=== PATIENT | male | born 1980 | race Caucasian/White ===

== ENCOUNTER 2017-07-21 20:52 | Emergency (ER) | payer SELFPAY ==
[~2017-07-21] VITALS: Ht 182.9 cm; Wt 72.6 kg
[~2017-07-21 20:52] MED LIST: BUPR1 PO; Bactrim Ds Tab1 EACH PO; Keflex500 MG PO; NAPR500 PO; Percocet 5-3251 EACH PO; SUBOXONE 8 MG-1 EACH SL
[2017-07-21] MEDS ORDERED: IBUP600 PO (23:10)
== END 2017-07-21 23:29 | disposition home or self-care (01) ==
LOC: ER 20:52
DX: M25.531 Pain in right wrist (principal); Z87.891 Personal history of nicotine dependence
CPT/HCPCS: 29125; 73110; 96372; 99283; J1885

== ENCOUNTER 2017-07-29 04:13 | Inpatient (IN) | payer SELFPAY ==
[~2017-07-29] VITALS: Ht 182.9 cm; Wt 72.2 kg
[~2017-07-29 04:13] MED LIST changes: +IBUP600 PO
[2017-07-29 05:22] LABS: BASOPHILS ABSOLUTE AUTO 0.02 K/mm3 (0.00-0.23); BASOPHILS PERCENT AUTO 0 % (0-2); EOSINOPHILS ABSOLUTE AUTO 0.05 K/mm3 (0.00-0.68); EOSINOPHILS PERCENT AUTO 1 % (0-6); Hematocrit 41.6 % (37.0-53.0); Hemoglobin 13.6 g/dL (13.5-17.5); IMMATURE GRAN ABSOLUTE AUTO 0.04 K/mm3 (0.00-0.10); IMMATURE GRAN PERCENT AUTO 1 % (0-1); LYMPHOCYTES ABSOLUTE AUTO 1.77 K/mm3 (0.84-5.20); LYMPHOCYTES PERCENT AUTO 20 % (21-46); MONOCYTES ABSOLUTE AUTO 1.12 K/mm3 (0.16-1.47); MONOCYTES PERCENT AUTO 13 % (4-13); Mean Corpuscular HGB 31.3 pg (26.0-34.0); Mean Corpuscular HGB Conc 32.7 g/dL (31.5-36.5); Mean Corpuscular Volume 96 fL (80-100); Mean Platelet Volume 9.4 fL (9.1-12.4); NEUTROPHILS ABSOLUTE AUTO 5.67 K/mm3 (1.96-9.15); NEUTROPHILS PERCENT AUTO 65 % (41-73); Platelet Count 294 K/mm3 (150-400); RDW Coefficient Variation 11.9 % (11.7-14.2); RDW Standard Deviation 41.5 fL (35.1-46.3); Red Blood Cell Count 4.35 M/mm3 (4.30-5.90); White Blood Cell Count 8.67 K/mm3 (4.00-11.30)
[2017-07-29 05:38] LABS: Alanine Aminotransfer (ALT/SGP 27 U/L (12-78); Albumin/Globulin Ratio 0.7 (0.8-1.8); Alk Phos 73 U/L (50-136); Anion Gap 7 mmol/L (6-16); Aspartate Aminotrans (AST/SGOT 25 U/L (12-37); Bilirubin, Total 0.4 mg/dL (0.1-1.0); Blood Urea Nitrogen 13 mg/dL (8-24); Bun/Creatinine Ratio 18.6 (12.0-20.0); CO2, Blood 28 mmol/L (21-32); Calcium, Blood 8.6 mg/dL (8.5-10.1); Chloride, Blood 106 mmol/L (98-108); Globulin, Blood 4.4 g/dL (2.2-4.0); Glomerular Filtration Rate >60 (60-); Glucose, Blood 92 mg/dL (70-99); Potassium, Blood 3.2 mmol/L (3.5-5.5); Sodium, Blood 141 mmol/L (136-145); Total Protein, Blood 7.4 g/dL (6.4-8.2)
[2017-07-29] MEDS ORDERED: IBUP800 PO (15:53)
[2017-07-30 05:19] LABS: BASOPHILS ABSOLUTE AUTO 0.05 K/mm3 (0.00-0.23); BASOPHILS PERCENT AUTO 1 % (0-2); EOSINOPHILS ABSOLUTE AUTO 0.09 K/mm3 (0.00-0.68); EOSINOPHILS PERCENT AUTO 1 % (0-6); Hemoglobin 12.2 g/dL (13.5-17.5); IMMATURE GRAN ABSOLUTE AUTO 0.08 K/mm3 (0.00-0.10); IMMATURE GRAN PERCENT AUTO 1 % (0-1); LYMPHOCYTES ABSOLUTE AUTO 1.62 K/mm3 (0.84-5.20); LYMPHOCYTES PERCENT AUTO 15 % (21-46); MONOCYTES ABSOLUTE AUTO 1.32 K/mm3 (0.16-1.47); MONOCYTES PERCENT AUTO 13 % (4-13); Mean Corpuscular HGB 31.3 pg (26.0-34.0); Mean Corpuscular HGB Conc 32.1 g/dL (31.5-36.5); Mean Corpuscular Volume 97 fL (80-100); Mean Platelet Volume 9.3 fL (9.1-12.4); NEUTROPHILS ABSOLUTE AUTO 7.39 K/mm3 (1.96-9.15); NEUTROPHILS PERCENT AUTO 70 % (41-73); Platelet Count 311 K/mm3 (150-400); RDW Coefficient Variation 11.9 % (11.7-14.2); RDW Standard Deviation 42.6 fL (35.1-46.3); White Blood Cell Count 10.55 K/mm3 (4.00-11.30)
[2017-07-30 05:44] LABS: Anion Gap 7 mmol/L (6-16); Blood Urea Nitrogen 10 mg/dL (8-24); Bun/Creatinine Ratio 14.2 (12.0-20.0); CO2, Blood 29 mmol/L (21-32); Calcium, Blood 8.1 mg/dL (8.5-10.1); Chloride, Blood 104 mmol/L (98-108); Creatinine, Blood 0.71 mg/dL (0.60-1.20); Glomerular Filtration Rate >60 (60-); Glucose, Blood 126 mg/dL (70-99); Potassium, Blood 4.2 mmol/L (3.5-5.5); Sodium, Blood 140 mmol/L (136-145); Vancomycin, Trough 11.3 ug/mL (5.0-10.0)
== END 2017-07-31 19:30 | disposition left against medical advice (07) | DRG 603 ==
LOC: ER 04:13 → MEDS 04:14
PROVIDERS: Emergency Medicine; Internal Medicine
DX: L03.113 Cellulitis of right upper limb (principal); E87.6 Hypokalemia; G56.01 Carpal tunnel syndrome, right upper limb; Z86.14 Personal history of Methicillin resistant Staphylococcus aureus infection
CPT/HCPCS: 20605; 36415; 73080; 80048; 80053; 80202; 83605; 85025; 85651; 86140; 87040; 93971; 96365; 96375; 99285; C1751; J1885; J2543; J3370; J7030; J7050; Q2038

== ENCOUNTER 2021-02-18 23:55 | Inpatient (IN) | payer OTHER ==
[~2021-02-18] VITALS: Ht 185.4 cm; Wt 89.5 kg
[~2021-02-18 23:55] MED LIST changes: +IBUP800 PO
[2021-02-19 00:23] LABS: BASOPHILS ABSOLUTE AUTO 0.07 K/mm3 (0.00-0.23); BASOPHILS PERCENT AUTO 1 % (0-2); EOSINOPHILS ABSOLUTE AUTO 0.07 K/mm3 (0.00-0.68); EOSINOPHILS PERCENT AUTO 1 % (0-6); Hematocrit 46.5 % (37.0-53.0); Hemoglobin 16.1 g/dL (13.5-17.5); IMMATURE GRAN ABSOLUTE AUTO 0.08 K/mm3 (0.00-0.10); IMMATURE GRAN PERCENT AUTO 1 % (0-1); LYMPHOCYTES ABSOLUTE AUTO 2.48 K/mm3 (0.84-5.20); LYMPHOCYTES PERCENT AUTO 20 % (21-46); MONOCYTES ABSOLUTE AUTO 0.93 K/mm3 (0.16-1.47); MONOCYTES PERCENT AUTO 7 % (4-13); Mean Corpuscular HGB 33.1 pg (26.0-34.0); Mean Corpuscular HGB Conc 34.6 g/dL (31.5-36.5); Mean Corpuscular Volume 96 fL (80-100); Mean Platelet Volume 9.7 fL (9.1-12.4); NEUTROPHILS ABSOLUTE AUTO 9.07 K/mm3 (1.96-9.15); NEUTROPHILS PERCENT AUTO 71 % (41-73); Platelet Count 290 K/mm3 (150-400); RDW Coefficient Variation 12.5 % (11.7-14.2); RDW Standard Deviation 44.3 fL (35.1-46.3); Red Blood Cell Count 4.87 M/mm3 (4.30-5.90)
[2021-02-19 00:31] LABS: Source, Urine Clean Catch
[2021-02-19 00:34] LABS: Bilirubin, Urine Neg (Neg); Blood, Urine 1+ (Neg); Glucose Qualitative, Urine Neg (Neg); Ketones, Urine Neg (Neg); Leukocyte Esterase, Urine Neg (Neg); Nitrite, Urine Neg (Neg); Protein, Urine 2+ (Neg); Specific Gravity, Urine 1.015 (1.003-1.022); Urobilinogen, Urine NORM (Normal)
[2021-02-19 00:41] LABS: Alanine Aminotransfer (ALT/SGP 75 U/L (12-78); Albumin, Blood 3.8 g/dL (3.4-5.0); Alk Phos 74 U/L (50-136); Anion Gap 10 mmol/L (6-16); Aspartate Aminotrans (AST/SGOT 91 U/L (12-37); Bilirubin, Total 0.4 mg/dL (0.1-1.0); Blood Urea Nitrogen 11 mg/dL (8-24); Bun/Creatinine Ratio 10.7 (12.0-20.0); CO2, Blood 21 mmol/L (21-32); Calcium, Blood 8.6 mg/dL (8.5-10.1); Chloride, Blood 110 mmol/L (98-108); Creatinine, Blood 1.03 mg/dL (0.60-1.20); Globulin, Blood 3.8 g/dL (2.2-4.0); Glomerular Filtration Rate >60 (60-); Glucose, Blood 113 mg/dL (70-99); Potassium, Blood 3.5 mmol/L (3.5-5.5); Sodium, Blood 141 mmol/L (136-145); Total Protein, Blood 7.6 g/dL (6.4-8.2)
[2021-02-19 00:43] LABS: Appearance, Urine Clear (Clear); Color, Urine Yellow (P-Yellow)
[2021-02-19 00:46] LABS: Bacteria Not Seen /hpf; Red Blood Cells, Urine 0-2 /hpf (0-2); Squamous Epithelial Cells Rare /hpf (Few); White Blood Cells, Urine Rare /hpf (0-5)
[2021-02-19 00:47] LABS: Granular Casts 0-2 /lpf (0); Transitional Epithelial Cells Few /hpf (0-Rare); U Amphetamine Screen Not Detected; U Barbituate Screen Not Detected; U Benzodiazapine Screen Not Detected; U Buprenorphine Screen Not Detected; U Cannabinoids Screen DETECTED; U Cocaine Screen Not Detected; U Methadone Screen Not Detected; U Methamphetamine Screen Not Detected; U Opiates Screen Not Detected; U Oxycodone Screen Not Detected; U Phencyclidine Screen Not Detected; U Propoxyphene Screen Not Detected
[2021-02-19 01:03] LABS: Ethanol (Alcohol), Blood, Med 319 mg/dL
[2021-02-19 02:16] LABS: Prothrombin Time Results 10.5 Sec (9.7-11.5)
[2021-02-19 02:18] LABS: PCO2 Arterial 35.7 mmHg (35-45); PO2 Arterial 89.6 mmHg (80-100); pH Blood Arterial 7.38 (7.35-7.45)
--- NOTE | 2021-02-19 03:05 | NUR ---
ASSUME CARE NOTE: PATIENT ARRIVED ON UNIT FROM ED AT 0305 WITH ED RN, A HELPER, AND RT. HE IS INTUBATED AND SEDATED ON C-SPINE PRECAUTIONS IN A C-COLLAR. VENT SETTINGS ARE ACVC 16/550/5/30%. SWB IN PLACE. COUGH AND GAG PRESENT. HR AND BP WNL. PROPOFOL INFUSING AT 40MCG/KG/MIN AND PRECEDEX AT 0.4MCG/HR. COTE IN PLACE WITH CLEAR YELLOW URINE DRAINING TO GRAVITY. OGT IS CLAMPED. LACERATION TO THE LEFT/MEDIAN FOREHEAD WITH JORJE PRESENT. SEE SHIFT ASSESSMENT FOR DETAILS.
[2021-02-19 03:33] LABS: SARS-Cov-2 (COVID-19) PCR, MMC NEGATIVE (NEGATIVE)
[2021-02-19 03:59] LABS: BASOPHILS ABSOLUTE AUTO 0.03 K/mm3 (0.00-0.23); BASOPHILS PERCENT AUTO 0 % (0-2); EOSINOPHILS ABSOLUTE AUTO 0.01 K/mm3 (0.00-0.68); EOSINOPHILS PERCENT AUTO 0 % (0-6); Hematocrit 39.7 % (37.0-53.0); Hemoglobin 13.9 g/dL (13.5-17.5); IMMATURE GRAN ABSOLUTE AUTO 0.04 K/mm3 (0.00-0.10); IMMATURE GRAN PERCENT AUTO 0 % (0-1); LYMPHOCYTES ABSOLUTE AUTO 1.69 K/mm3 (0.84-5.20); LYMPHOCYTES PERCENT AUTO 13 % (21-46); MONOCYTES ABSOLUTE AUTO 1.02 K/mm3 (0.16-1.47); MONOCYTES PERCENT AUTO 8 % (4-13); Mean Corpuscular HGB 33.2 pg (26.0-34.0); Mean Corpuscular Volume 95 fL (80-100); Mean Platelet Volume 9.8 fL (9.1-12.4); NEUTROPHILS ABSOLUTE AUTO 10.19 K/mm3 (1.96-9.15); NEUTROPHILS PERCENT AUTO 79 % (41-73); Platelet Count 247 K/mm3 (150-400); RDW Coefficient Variation 12.6 % (11.7-14.2); RDW Standard Deviation 43.8 fL (35.1-46.3); Red Blood Cell Count 4.19 M/mm3 (4.30-5.90); White Blood Cell Count 12.98 K/mm3 (4.00-11.30)
[2021-02-19 04:23] LABS: Alanine Aminotransfer (ALT/SGP 57 U/L (12-78); Albumin, Blood 3.2 g/dL (3.4-5.0); Alk Phos 63 U/L (50-136); Anion Gap 10 mmol/L (6-16); Aspartate Aminotrans (AST/SGOT 76 U/L (12-37); Bilirubin, Total 0.7 mg/dL (0.1-1.0); Blood Urea Nitrogen 10 mg/dL (8-24); Bun/Creatinine Ratio 10.9 (12.0-20.0); CO2, Blood 22 mmol/L (21-32); Chloride, Blood 110 mmol/L (98-108); Creatinine, Blood 0.92 mg/dL (0.60-1.20); Globulin, Blood 3.1 g/dL (2.2-4.0); Glomerular Filtration Rate >60 (60-); Glucose, Blood 112 mg/dL (70-99); Potassium, Blood 3.3 mmol/L (3.5-5.5); Sodium, Blood 142 mmol/L (136-145); Total Protein, Blood 6.3 g/dL (6.4-8.2)
--- NOTE | 2021-02-19 06:03 | NUR ---
PROVIDER UPDATE: SPOKE WITH DR. SCHMITZ IN REGARDS TO THE FOLLOWIN. PHARMACY CALLED TO VERIFY IF PROVIDER WANTED MORE THAN [address] SCHMITZ ORDERED ANCEF 1G IV Q8HR X 6 DOSES. 2. POTASSIUM IS 3.3. HE ORDERED A 1 TIME DOSE OF POTASSIUM 40MEQ. 3. PT'S BP HAS BEEN SOFT, WITH SBP IN 70'S AND MAP OF 59-64, DESPITE DECREASING THE PROPOFOL. HE ORDERED 500ML BOLUS OF NS. IF NEEDED, CAN GIVE ANOTHER 500ML. 4. LACTIC WENT FROM 3.3 TO 2.3. PROVIDER AWARE, NO NEW ORDERS.
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
--- NOTE | 2021-02-19 07:31 | NUR ---
ASSUMING CARE OF PT. LOC: SEDATED WITH PROPOFOL AND PRECEDEX. PERRLA, C-COLLAR ON. DOES NOT FOLLOW COMMANDS AT THIS TIME. SEDATION INCREASED DUE TO AGITATION. RESP: INTUBATED AC 16/550/5/30% LUNG SOUNDS CLEAR CARDIO: NSR ON MONTIOR NO EDEMA. CAP REFILL NORMAL GI: NPO, OGT CLAMPED : COTE TO GRAVITY SKIN: LAC ACROSS FOREHEAD.
--- NOTE | 2021-02-19 13:50 | NUR ---
WASHED UP WHAT APPEARED TO BE BLOOD FROM PT'S FACE, HAIR, ARMS AND HANDS. PT STILL HAS RISIDUAL IN HAIR AND ON FACE. CHANGED GOWN AND DIAZ
--- NOTE | 2021-02-19 17:31 | NUR ---
SHIFT SUMMERY PT REMAINS INTUBATED. PLAN TO EXTUBATE IN AM LOC: MOVES ALL EXTREMITES WHEN SEDATION REDUCED. :URINE MINIMAL OUTPUT. HOSPITALIST NOTIFED. BOLUS GIVEN FOR B/P AND URINE OUTPUT SKIN: LACERATION OPEN TO AIR, JORJE. GTT: PROPOFOL AT 60. PRECEDEX AT 1.4. NS AT 150ML/HR C-COLLAR ON, C-SPINE PRECAUSTIONS MAINTAINED,
--- NOTE | 2021-02-19 19:00 | NUR ---
ASSUME CARE NOTE: PATIENT IS INTUBATED AND SEDATED WITH SWB RESTRAINTS IN PLACE. HE DOES NOT FOLLOW COMMANDS BUT CAN MOVE EXTREMITIES. PROPOFOL INFUSING AT 55MCG/HG/HR, NS AT 150ML/HR, AND PRECEDEX AT 1.4MCG/HR. VENT SETTINGS: ACVC 16/550/5/30%. VITALS WNL. COTE IN PLACE DRAINING YELLOW URINE TO GRAVITY. OGT IN PLACE AND CURRENTLY CLAMPED. C-COLLAR STILL IN PLACE AND JORJE IN INTACT ON FOREHEAD LAC. SEE SHIFT ASSESSMENT FOR DETAILS.
--- NOTE | 2021-02-19 22:20 | NUR ---
FAMILY UPDATE: PATIENT'S FATHER, SABINA JACK, CALLED FOR AN UPDATE. I EXPLAINED THAT ONLY HIS IS LISTED A CONTACT SO WE WOULD NEED HER TO CALL TO GIVE PERMISSION TO GIVE HIM INFORMATION. HE EXPRESSED UNDERSTANDING AND HAD NO FURTHER QUESTIONS.
[2021-02-20 06:16] LABS: Anion Gap 5 mmol/L (6-16); Blood Urea Nitrogen 7 mg/dL (8-24); Bun/Creatinine Ratio 8.7 (12.0-20.0); CO2, Blood 23 mmol/L (21-32); Calcium, Blood 8.2 mg/dL (8.5-10.1); Chloride, Blood 113 mmol/L (98-108); Creatinine, Blood 0.81 mg/dL (0.60-1.20); Glomerular Filtration Rate >60 (60-); Glucose, Blood 102 mg/dL (70-99); Potassium, Blood 3.7 mmol/L (3.5-5.5); Sodium, Blood 141 mmol/L (136-145)
--- NOTE | 2021-02-20 06:58 | NUR ---
SHIFT SUMMARY: NO ACUTE OVERNIGHT EVENTS. PATIENT REMAINS INTUBATED AND SEDATED IN SWB. VENT SETTINGS: ACVC 16/550/5/30%. TITRATED DOWN SEDATION IN PREP FOR EXTUBATION SO PROPOFOL INFUSING AT 25MCG/KG/MIN, PRECEDEX AT 0.5MCG/HR, AND NS AT 150ML/HR. HE HAS BEEN SINUS AMITA AND BP WNL. COTE DRAINING DARK RAGHAV URINE WITH SEDIMENT. OGT STILL IN PLACE AND CLAMPED. NO BM THIS SHIFT. C-COLLAR STILL IN PLACE. WILL REPORT TO ONCOMING RN WHEN AVAILABLE.
--- NOTE | 2021-02-20 09:27 | NUR ---
EXTUBATION 0757 PATIENT EXTUBATED. PLACED ON 4l NC. STATS 90-92% 0928 PATIENT ON 10L O2 STATS 84-90% PRODUCTIVE COUGH. PATIENT HAS TREMORS, ANXIETY. 2MG OF ATIVAN GIVEN. PRECEDEX INFUSING. LOC: AAOX3, IMPULSIVE. DR. BERNARD UPDATED. PHENOBARB ORDERED TO PREVENT DT'S
--- NOTE | 2021-02-20 17:59 | NUR ---
NO RELASE OF INFORMATION TO MOTHER/ NO VISITATION PT STATED THAT MOTHER CANNOT BE UPDATED, NO BELONGINGS RELEASED TO HER, NOT ALLOWED TO VISIT. MOTHER CAME IN TODAY AND ATTEMPTED TO VISIT MULTIPLE TIMES. SHE WAS INFORMED OF PATIENTS WISHES. SECURITY NOTIFED SHE CONTINUE TO TRY TO GET IN AND THEN REQUESTED PATIENTS KEYS. OK FOR FATHER TO BE UPDATED AND VISIT
--- NOTE | 2021-02-20 19:00 | NUR ---
ASSUME CARE NOTE: PATIENT LYING IN BED WITH EYES CLOSED AND APPEARS TO BE RESTING COMFORTABLY. EASILY AROUSABLE. HE IS A&O TO PERSON, PLACE, TIME, AND SITUATION. HE HAS TREMORS AND MILD ANXIETY AND COMPLAINS OF 7/10 PAIN IN HIS HEAD AND FACE. CIWA SCORE OF 8. PT ON 15L HFNC AND SAT 95%. HR AND BP WNL. COTE DRAINING RAGHAV URINE WITH SEDIMENT TO GRAVITY. SKIN IS WARM AND DRY WITH LACERATION TO FOREHEAD WITH JORJE INTACT. PRECEDEX INFUSING AT 0.4MCG/HR AND NS 150ML/HR. SEE SHIFT ASSESSMENT FOR DETAILS.
--- NOTE | 2021-02-21 07:11 | NUR ---
SHIFT SUMMARY: PATIENT RESTING COMFORTABLY IN BED ON 15L HFNC. HE HAS NO COMPLAINTS OF PAIN AT THIS TIME AND IS REMAINS ALERT AND ORIENTED. LAST CIWA SCORE WAS 3. HIS HR AND BP ARE WNL. COTE REMAINS IN PLACE WITH RAGHAV URINE DRAINING TO GRAVITY. TOLERATED HIS FULL LIQUID DIET AND NO BM THIS SHIFT. SKIN IS WARM AND DRY AND FOREHEAD LACERATION STILL HAS JORJE INTACT. PRECEDEX INFUSING AT 0.2MCG/HR. GAVE REPORT TO ALLYN VENTURA.
--- NOTE | 2021-02-21 10:13 | NUR ---
CARE ASSUMED ASSESSMENTS COMPLETED. PT ALERT AND ORIENTED X4, REYES, [place] EQUALLY. PT SLIGHTLY IRRITABLE BUT COOPERATIVE WITH CARE. CIWA SCORE 4. PRECEDEX AND O2 TITRATED OFF, PT TOLERATING WELL, SLEEPING ON AND OFF. LACERATIONS TO FOREHEAD WITH JORJE INTACT, FOREHEAD AND BILAT EYES ARE SWOLLEN AND BRUISED, NO ACTIVE BLEEDING NOTED. PT REFUSED BREAKFAST, IS TAKING PO FLUIDS WITHOUT DIFFICULTY. MEDICATED FOR FACIAL PAIN, DENIES NAUSEA OR OTHER C/O. VSS.
--- NOTE | 2021-02-21 11:02 | NUR ---
UPDATE PT UP TO BSC FOR BM, GAIT STEADY WITH 1 PERSON ASSIST. BEDSIDE BATH GIVEN, PT BACK TO BED, SPO2 >90% ON RA, PT DENIES SOB, REMAINS COOPERATIVE WITH CARE, IS PLEASANT AT THIS TIME. PRECEDEX REMAINS OFF. ROCAEL GREGG. DR. BERNARD IN TO ASSESS, PT MEDICAL STATUS WITHOUT TELE AT THIS TIME.
--- NOTE | 2021-02-21 14:07 | NUR ---
UPDATE PT DENIES FEELING SICK BUT REPORTS PRODUCTIVE COUGH. SMALL AMOUNT OF PINK SPUTUM NOTED IN [place] AT BEDSIDE. DR. BERNARD NOTIFIED OF PT'S LOW GRADE FEVER AND PRODUCTIVE COUGH, INSTRUCTIONS TO CONTINUE TO MONITOR AND NOTIFY PROVIDER IF FEVER REACHES 101.5. PT REMAINS PLEASANT AND COOPERATIVE THIS AFTERNOON, CIWA SCORES MINIMAL.
--- NOTE | 2021-02-21 14:49 | NUR ---
PT TO ROOM 343, REPORT GIVEN TO RECEIVING NURSE.
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
[2021-02-22 01:55] LABS: BASOPHILS ABSOLUTE AUTO 0.04 K/mm3 (0.00-0.23); BASOPHILS PERCENT AUTO 0 % (0-2); EOSINOPHILS ABSOLUTE AUTO 0.04 K/mm3 (0.00-0.68); EOSINOPHILS PERCENT AUTO 0 % (0-6); Hematocrit 35.4 % (37.0-53.0); Hemoglobin 12.5 g/dL (13.5-17.5); IMMATURE GRAN ABSOLUTE AUTO 0.09 K/mm3 (0.00-0.10); IMMATURE GRAN PERCENT AUTO 1 % (0-1); LYMPHOCYTES ABSOLUTE AUTO 1.59 K/mm3 (0.84-5.20); LYMPHOCYTES PERCENT AUTO 13 % (21-46); MONOCYTES ABSOLUTE AUTO 0.91 K/mm3 (0.16-1.47); MONOCYTES PERCENT AUTO 8 % (4-13); Mean Corpuscular HGB 33.2 pg (26.0-34.0); Mean Corpuscular HGB Conc 35.3 g/dL (31.5-36.5); Mean Corpuscular Volume 94 fL (80-100); Mean Platelet Volume 10.2 fL (9.1-12.4); NEUTROPHILS ABSOLUTE AUTO 9.48 K/mm3 (1.96-9.15); NEUTROPHILS PERCENT AUTO 78 % (41-73); Platelet Count 187 K/mm3 (150-400); RDW Coefficient Variation 12.5 % (11.7-14.2); RDW Standard Deviation 43.7 fL (35.1-46.3); Red Blood Cell Count 3.76 M/mm3 (4.30-5.90); White Blood Cell Count 12.15 K/mm3 (4.00-11.30)
[2021-02-22 02:08] LABS: Anion Gap 7 mmol/L (6-16); Blood Urea Nitrogen 2 mg/dL (8-24); Bun/Creatinine Ratio 2.6 (12.0-20.0); CO2, Blood 25 mmol/L (21-32); Calcium, Blood 8.3 mg/dL (8.5-10.1); Chloride, Blood 113 mmol/L (98-108); Creatinine, Blood 0.76 mg/dL (0.60-1.20); Glomerular Filtration Rate >60 (60-); Glucose, Blood 103 mg/dL (70-99); Potassium, Blood 3.1 mmol/L (3.5-5.5); Sodium, Blood 145 mmol/L (136-145)
--- NOTE | 2021-02-22 05:17 | NUR ---
SHIFT SUMMARY PT C/O PAIN TO HIS HEAD, [address], AND PAIN TO HIS SIDES. RN DISCUSSED PAIN CONTROL WITH GARMENT PRESSER, RECOMMEDED TO MORE FREQUENTLY MONITOR PT'S PAIN AND PROVIDE HOURLY PRN MEDICATION. AT TIMES PT IS OBSERVED RESTING QUIETLY WATCHING TV OR WITH EYES CLOSED. OFFERED ATIVAN, PT REFUSED STATING "I DON'T WANT TO GO DOWN THAT ROAD...." DIDN'T ELABORATE FURTHER. ATTEMPTED ICE PACK TO HELP PT'S HEADACHE, WITH MINIMAL RESULTS. PT WITH THREE RAISED WELTS ON HIS CHEST. DENIES ALLERGIES, ITCHING, TROUBLE BREATHING. HE IS TOLERATING FULL LIQUID DIET WELL, DRINKING ENSURES FOR PROTEIN. BED IN LOWEST POSITION, CALL LIGHT ON. WILL CONTINUE TO MONITOR.
--- NOTE | 2021-02-22 19:01 | NUR ---
Alert and oriented x3 , independent with ADSL, had shower this evening. C/o forehead /facial pain, 12/15 ,described pain as aching , fentayl was first given and patient later switched to PO med . [place] was given , it was effective. Tylenol 650 mg and advil was given ,it was effective. Facial/forehead pamella are in placed , no drainage noted. Potassium trended down to 3.1 , IV potassium ordered, first bag infusing . Continue to monitor.
--- NOTE | 2021-02-23 04:31 | NUR ---
END OF SHIFT SUMMARY: Pt A&Ox4. No acute events overnight. Still having pain in face area, medicated per eMAR. Able to voice needs, call light within reach. Pt independednt in room.
[2021-02-23 09:53] LABS: Albumin, Blood 2.6 g/dL (3.4-5.0); Anion Gap 6 mmol/L (6-16); Blood Urea Nitrogen 6 mg/dL (8-24); CO2, Blood 27 mmol/L (21-32); Calcium, Blood 8.7 mg/dL (8.5-10.1); Chloride, Blood 110 mmol/L (98-108); Creatinine, Blood 0.75 mg/dL (0.60-1.20); Glomerular Filtration Rate >60 (60-); Glucose, Blood 102 mg/dL (70-99); Phosphorus, Blood 3.7 mg/dL (2.5-4.9); Potassium, Blood 3.5 mmol/L (3.5-5.5); Sodium, Blood 143 mmol/L (136-145)
[2021-02-23] MEDS ORDERED: CLON.5 PO (11:35)
[2021-02-23] MEDS ORDERED: ACET500 PO (11:35)
[2021-02-23] MEDS ORDERED: CLIN150 PO (11:35)
[2021-02-23] MEDS ORDERED: IBUP600 PO (11:36)
[2021-02-23] MEDS ORDERED: PANT20 PO (11:37)
[2021-02-23] MEDS ORDERED: OXYC5 PO (11:37)
[2021-02-23] MEDS ORDERED: MELA3 PO (11:37)
--- NOTE | 2021-02-23 15:04 | NUR ---
Alert and oriented x4 , c/o facial/forehead pain 8/10 , described pain as aching and pulling , oxycodone and Tylenol 650 mg po was given and it was effective. Independently with ADLS. Continue on ABO therapy , no adverse effects noted. Facial pamella in place , no drainage noted. Patient discharged home in stable condition and discharged instruction given.
[2021-02-26 10:10] LABS: CARBOXY-THC 49 (.)
== END 2021-02-23 12:52 | disposition home or self-care (01) | DRG 83 ==
LOC: ER 23:55 → MEDS 02-19 01:44 → ICUW 02-19 01:44 → MEDS 02-21 15:01
PROVIDERS: Emergency Medicine; Family Medicine; Internal Medicine; ADMIT Surgery
PROC: 0BH18EZ Insertion of Endotracheal Airway into Trachea, Via Natural or Artificial Opening Endoscopic (ICD-10-PCS; principal; 2021-02-19)
PROC: 5A1945Z Respiratory Ventilation, 24-96 Consecutive Hours (ICD-10-PCS; 2021-02-19)
PROC: 0HQ0XZZ Repair Scalp Skin, External Approach (ICD-10-PCS; 2021-02-19)
PROC: 3E0234Z Introduction of Serum, Toxoid and Vaccine into Muscle, Percutaneous Approach (ICD-10-PCS; 2021-02-19)
DX: S06.5X9A Traumatic subdural hemorrhage with loss of consciousness of unspecified duration, initial encounter (principal); E87.2 Acidosis; Z20.822 Contact with and (suspected) exposure to COVID-19; R40.2362 Coma scale, best motor response, obeys commands, at arrival to emergency department; R40.2142 Coma scale, eyes open, spontaneous, at arrival to emergency department; R40.2242 Coma scale, best verbal response, confused conversation, at arrival to emergency department; S01.01XA Laceration without foreign body of scalp, initial encounter; Z23 Encounter for immunization; F41.9 Anxiety disorder, unspecified; G47.00 Insomnia, unspecified; F10.129 Alcohol abuse with intoxication, unspecified; Z87.891 Personal history of nicotine dependence; Z86.14 Personal history of Methicillin resistant Staphylococcus aureus infection; Z87.442 Personal history of urinary calculi; W10.9XXA Fall (on) (from) unspecified stairs and steps, initial encounter; Y90.8 Blood alcohol level of 240 mg/100 ml or more
CPT/HCPCS: 12005; 31500; 36415; 36600; 51702; 70450; 71045; 71260; 72125; 73110; 74177; 80048; 80053; 80069; 81001; 82803; 82947; 83605; 83690; 83735; 85025; 85610; 85730; 86850; 86900; 86901; 90471; 90714; 94002; 94003; 99285-25; A9270; C1751; C9113; G0480; J0690; J0696; J2060; J2250; J2560; J2704; J3010; J3411; J3480; J7030; J7040; J7050; J7120; L0160; Q9967; U0004